=== PATIENT | male | born 1960 | race Caucasian/White ===

== ENCOUNTER 2020-01-03 00:27 | Inpatient (IN) | payer MEDICARE, MEDICAID, SELFPAY ==
[2020-01-03] VITALS (8 sets, daily range): BP systolic 134–174; BP diastolic 84–111; PULSE 106–120; RESP 17–21; TEMP 36.7–37.2; O2SAT 96–98; BMI 19.6
--- NOTE | 2020-01-03 00:34 | ED_ITS ---
HPI - Psych General: Chief Complaint: Psychiatric Symptoms Stated Complaint: HALLUCINATIONS Time Seen by Provider: 01/03/20 00:30 Source: patient Mode of arrival: [facility]) Limitations: altered mental status History of Present Illness: HPI Narrative: Patient is a 59-year-old male who presents to ED today via [facility] as well as [facility] for compl aints of bizarre behavior and hostile actions. [facility] office stated when they arrived to patient's home, patient came him with a knife stating that it was his day to and that he was ordered to kill him by the president. Apparently patient lives with his cousin who is the individual that contacted the police. Upon arrival patient's history is very hard to obtain from patient himself as he constantly rambles about people living underneath his house. 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 He states he is not suicidal. He admits to meth use. Associated symptoms: Reports delusions Review of Systems General: Reports: ROS unobtainable due to mental status [facility] ED PFSH: Family History (Updated 06/07/19 @ 14:42 by Ariana Crum RN) Other CAD (coronary artery disease) Social History (Updated 06/07/19 @ 14:42 by Ariana Crum RN) Smoking and tobacco status: current every day smoker Alcohol intake: never Physical Exam Const: COMMON NORMALS: alert GENERAL APPEARANCE: cooperative, disheveled and appears older than stated age ORIENTATION/CONSCIOUSNESS: Yes awake OTHER: pt rambles incessantly; he refuses to tell me his name stating I already told someone and I'm not allowed to tell anyone else HENMT: COMMON NORMALS: normocephalic and atraumatic HEAD & SCALP: normocephalic and atraumatic Resp: COMMON NORMALS: normal respiratory effort Cardio: COMMON NORMALS: regular rhythm RATE: tachycardic RHYTHM: regular rhythm Neuro: MARLENE COMA SCALE: document GCS findings Tracy coma scale eye opening: Spontaneous Tracy coma scale verbal response: Orientated Marlene coma scale motor response: Obey commands Tracy coma scale total score: 15 SENSORIUM/ORIENTATION: Yes alert Psych: APPEARANCE: Yes disheveled ATTITUDE: Yes calm ACTIVITY/MOTOR BEHAVIOR: Yes appropriate eye contact SPEECH: Yes excessive MOOD & AFFECT: Yes euthymic mood THOUGHT PROCESS: disorganized and Illogical thought process present THOUGHT CONTENT: Yes delusions ATTENTION/CONCENTRATION: Yes attention grossly impaired and Yes concentration grossly impaired INSIGHT: Limited insight present (Psych) JUDGEMENT: Limited judgement present (Psych) Skin: COMMON NORMALS: no rashes or lesions noted GENERAL SKIN EXAM: no rashes or lesions noted MDM - Psych MDM Narrative: Medical decision making narrative: Patient with no known psych history from our records. He doesn't have any psychiatric meds on his drug list. Will go ahead and obtain CT head. If cleared, he can go to NPU. Lab Data: Labs: Lab Results 01/03/20 01/03/20 Range/Units 01:00 01:00 WBC 7.1 (4.0-10.0) 10^3/ uL RBC 4.51 (4.1-5.3) 10^6/u L Hgb 14.0 (11.7-16.6) g/dL Hct 42.1 (42.0-52.0) % MCV 93.3 (80-94) fL MCH 31.0 (28.0-34.0) pg MCHC 33.3 (30.0-36.0) g/dL RDW 14.1 (12.1-15.1) % Plt Count 289 (130-400) 10^3/c mm MPV 9.9 (7.4-10.4) fL Neut % (Auto) 59.5 % Lymph % (Auto) 29.1 % Dickey % (Auto) 9.2 % Eos % (Auto) 0.3 % Baso % (Auto) 1.6 % Neut # (Auto) 4.22 (1.8-7.7) 10^3/u L Lymph # (Auto) 2.1 (0.8-4.8) 10^3/u L Dickey # (Auto) 0.7 (0.2-0.9) 10^3/u L Eos # (Auto) 0.0 (0.0-0.8) 10^3/u L Baso # (Auto) 0.1 (0.0-0.1) 10^3/u L Nucleated RBC % (a uto) 0 % Nucleated RBCs # 0.0 /100WBC Sodium 139 (136-145) mmol/L Potassium 3.6 (3.5-5.1) mmol/L Chloride 104 (98-107) mmol/L Carbon Dioxide 18 L (22-29) mmol/L Anion Gap 20.6 H (5-19) BUN 18 (8-23) mg/dL Creatinine 1.6 H (0.7-1.2) mg/dL GFR Calculation 44.2 L (90-130) mL/min Glucose 104 (65-115) mg/dL Calculated Osmolal ity 290 (285-295) mOsm/k g Calcium 9.9 (8.5-10.5) mg/dL Total Bilirubin 0.3 (0.15-1.2) mg/dL AST 25 (0-40) U/L ALT 16 (0-41) U/L Alkaline Phosphata se 99 (40-130) IU/L Total Protein 7.8 (6.6-8.7) g/dL Albumin 3.9 (3.5-5.2) g/dL Globulin 3.9 (1.3-4.6) g/dL Salicylates < 0.3 L (3-10) mg/dL Acetaminophen < 5.0 L (10-30) ug/mL Ethyl Alcohol < 10 (0-10) mg/dL Imaging Data^: CT Head: Radiologist's impression: [address] [address] [address] Scan Report Signed Patient: Real Casey Unit #: [id number] : 1960 Age/Sex: 59 / M ADM Date: 01/03/20 Loc: INJECTION MOLD TOOLING TECHNICIAN Room/Bed: [address]: Hari Hart MD Ordering Provider/Ordering MD: Katie Heart MD Date of Service: 01/03/20 Procedure(s): CT head wo con* [id number] Accession Number(s): [id number] Report Number: [id number] PROCEDURE INFORMATION: Exam: CT Head Without Contrast Exam date and time: 01/03/2020 1:51 AM Age: 59 years old Clinical indication: Altered mental status/memory loss; Confusion or disorientation; Additional info: Psychosis TECHNIQUE: Imaging protocol: Computed tomography of the head without contrast. Radiation optimization: All CT scans at this facility use at least one of these dose optimization techniques: automated exposure control; mA and/or kV adjustment per patient size (includes targeted exams where dose is matched to clinical indication); or iterative reconstruction. COMPARISON: No relevant prior studies available. RADIATION DOSE METRICS: Total DLP (mGy-cm): 638.14 FINDINGS: Brain: No acute intracranial hemorrhage or mass effect. No definite acute infarct by CT. MRI could be more sensitive/specific for detection, as clinically directed. Ventricles: Ventricle size is normal for age. Bones/joints: No definite acute skull fracture. Paranasal sinuses: Included paranasal sinuses are essentially clear. Mastoid air cells: No significant acute finding. Vasculature: Vascular calcifications in the internal carotid and vertebral basilar systems. CT/CT head wo con* [id number] IMPRESSION: 1. No acute intracranial hemorrhage or mass effect. 2. No definite acute infarct by CT, see above. 3. Other findings discussed above. Radiation Dose CTDIVOL = (mGy): DLP = 638.14 (mGy-cm) Dictated By: Allan Prieto MD Signed By: Allan Prieto MD Signed Date/Time: 01/03/20217 DD/ 6 Discharge Plan Discharge Patient Disposition: Admitted As Inpatient Admit Provider: Hari Hart Clinical Impression: Acute psychosis Condition: Stable Coding Level of Care Code ED Cyber Ops Planner for Chg Fwd Exam Detailed
[2020-01-03 01:23] LABS: Basophils # 0.1 10^3/uL (0.0-0.1); Basophils % 1.6 %; Eosinophils % 0.3 %; Hematocrit 42.1 % (42.0-52.0); Lymphocytes # 2.1 10^3/uL (0.8-4.8); Lymphocytes % 29.1 %; Mean Corpuscular HGB Conc 33.3 g/dL (30.0-36.0); Mean Corpuscular Volume 93.3 fL (80-94); Mean Platelet Volume 9.9 fL (7.4-10.4); Monocytes # 0.7 10^3/uL (0.2-0.9); Monocytes % 9.2 %; Neutrophils # 4.22 10^3/uL (1.8-7.7); Neutrophils % 59.5 %; Nucleated Red Blood Cells % 0 %; Platelet Count 289 10^3/cmm (130-400); Red Blood Count 4.51 10^6/uL (4.1-5.3); Red Cell Distribution Width 14.1 % (12.1-15.1); White Blood Count 7.1 10^3/uL (4.0-10.0)
[2020-01-03 01:36] LABS: Alanine Aminotransferase 16 U/L (0-41); Albumin Level 3.9 g/dL (3.5-5.2); Alkaline Phosphatase 99 IU/L (40-130); Anion Gap 20.6 (5-19); Aspartate Amino Transferase 25 U/L (0-40); Blood Urea Nitrogen 18 mg/dL (8-23); Calcium 9.9 mg/dL (8.5-10.5); Carbon Dioxide 18 mmol/L (22-29); Chloride 104 mmol/L (98-107); Globulin 3.9 g/dL (1.3-4.6); Glomerular Filtration Rate 44.2 mL/min (90-130); Glucose 104 mg/dL (65-115); Osmolality Calculated 290 mOsm/kg (285-295); Potassium 3.6 mmol/L (3.5-5.1); Sodium 139 mmol/L (136-145); Total Bilirubin 0.3 mg/dL (0.15-1.2); Total Protein 7.8 g/dL (6.6-8.7)
[2020-01-03 01:40] LABS: Acetaminophen < 5.0 ug/mL (10-30); Alcohol Level < 10 mg/dL (0-10); Salicylate < 0.3 mg/dL (3-10)
--- NOTE | 2020-01-03 01:47 | CTR_ITS ---
PROCEDURE INFORMATION: Exam: CT Head Without Contrast Exam date and time: 01/03/2020 1:51 AM Age: 59 years old Clinical indication: Altered mental status/memory loss; Confusion or disorientation; Additional info: Psychosis TECHNIQUE: Imaging protocol: Computed tomography of the head without contrast. Radiation optimization: All CT scans at this facility use at least one of these dose optimization techniques: automated exposure control; mA and/or kV adjustment per patient size (includes targeted exams where dose is matched to clinical indication); or iterative reconstruction. COMPARISON: No relevant prior studies available. RADIATION DOSE METRICS: Total DLP (mGy-cm): 638.14 FINDINGS: Brain: No acute intracranial hemorrhage or mass effect. No definite acute infarct by CT. MRI could be more sensitive/specific for detection, as clinically directed. Ventricles: Ventricle size is normal for age. Bones/joints: No definite acute skull fracture. Paranasal sinuses: Included paranasal sinuses are essentially clear. Mastoid air cells: No significant acute finding. Vasculature: Vascular calcifications in the internal carotid and vertebral basilar systems. CT/CT head wo con* [id number] IMPRESSION: 1. No acute intracranial hemorrhage or mass effect. 2. No definite acute infarct by CT, see above. 3. Other findings discussed above. Radiation Dose CTDIVOL = (mGy): DLP = 638.14 (mGy-cm)
--- NOTE | 2020-01-03 02:58 | PC.NURSE ---
i agree with this assessment
--- NOTE | 2020-01-03 04:51 | PC.NURSE ---
The patient has multiple areas of discoloration to both arms which appear to be old bruises. There is one healing skin tear on left arm that is about 1/2 size of a dime.
[2020-01-03] MEDS: loperamide 2 mg Capsule PO (08:57)
--- NOTE | 2020-01-03 12:24 | PM.NHP ---
Providers/Chief Complaint Admitting Physician: Hari Hart MD Chief Complaint: HALLUCINATIONS HPI NPU History of Present Illness Real Casey is a 59 year old male who presented to the emergency room with yielding the following report: Patient is a 59-year-old male who presents to ED today via [facility] as well as [facility] for complaints of bizarre behavior and hostile actions. [facility] office stated when they arrived to patient's home, patient came him with a knife stating that it was his day to and that he was ordered to kill him by the president. Apparently patient lives with his cousin who is the individual that contacted the police. Upon arrival patient's history is very hard to obtain from patient himself as he constantly rambles about people living underneath his house. 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 He states he is not suicidal. He admits to meth use. Associated symptoms: Reports delusions Real was admitted to the neuropsychiatric unit for definitive treatment of those issues. He is a very poor story and was not able to add a lot of information due to both his poor communication skills his anxiety and some apparent thought disorder. There are different times in the interview where he got emotional and ultimately demanded that I leave the room prior to the completion of the interview. It was then, with asking historical questions about his family namely whether his parents were alive. He said no and began crying. The more upset he got the more angry got it me. And ultimately kicked me out of his room. He reports no previous psychiatric hospitalization. He was also very upset because he felt like his family had deserted him and that is why he is here. He did agree however that we could contact his family. Meds NPU Home Medications Medication Instructions Recorded Confirmed Last Taken Type albuterol sulfate 90 mcg/actuation 2 puff INHALATION Q6H PRN 06/07/19 01/03/20 Unknown History aerosol inhaler amlodipine 10 mg tablet 10 mg PO DAILY 06/07/19 01/03/20 Unknown History aspirin 81 mg tablet,delayed 81 mg PO DAILY 06/07/19 01/03/20 Unknown History release atorvastatin 40 mg tablet 40 mg PO DAILY 06/07/19 01/03/20 Unknown History clopidogrel 75 mg tablet 75 mg PO DAILY 06/07/19 01/03/20 Unknown History fluticasone furoate 200 1 inh INHALATION DAILY 06/07/19 01/03/20 Unknown History mcg-vilanterol 25 mcg/dose inhalation powder fluticasone propionate 50 2 spray INTRANASAL DAILY 06/07/19 01/03/20 Unknown History mcg/actuation nasal spray,suspension lisinopril 20 mg tablet 20 mg PO BID 06/07/19 01/03/20 Unknown History magnesium oxide 400 mg PO BID 06/07/19 01/03/20 Unknown History metoclopramide HCl 10 mg tablet 10 mg PO Q6H 06/07/19 01/03/20 Unknown History mirtazapine 30 mg tablet 30 mg PO DAILY 06/07/19 01/03/20 Unknown History nitroglycerin 0.4 mg sublingual 0.4 mg SUBLINGUAL Q5M PRN 06/07/19 01/03/20 Unknown History tablet nortriptyline 10 mg capsule 10 mg PO DAILY 06/07/19 01/03/20 Unknown History omeprazole 20 mg capsule,delayed 20 mg PO BID 06/07/19 01/03/20 Unknown History release ranitidine HCl 150 mg capsule 150 mg PO BID 06/07/19 01/03/20 Unknown History tamsulosin 0.4 mg capsule 0.4 mg PO DAILY 06/07/19 01/03/20 Unknown History tiotropium bromide 2.5 2 puff INHALATION DAILY 06/07/19 01/03/20 Unknown History mcg/actuation mist for inhalation cilostazol 100 mg tablet 100 mg PO BID #60 tab 07/15/19 01/03/20 Unknown Rx metoprolol succinate 100 mg 100 mg PO DAILY #90 tab 07/15/19 01/03/20 Unknown Rx tablet,extended release 24 hr Allergies Allergy/AdvReac Type Severity Reaction Status Date / Time tramadol Allergy Unknown sick Verified 06/07/19 14:39 stomach PFSH NPU PFSH: Family History (Updated 06/07/19 @ 14:42 by Ariana Crum RN) Other CAD (coronary artery disease) Social History (Updated 06/07/19 @ 14:42 by Ariana Crum RN) Smoking and tobacco status: current every day smoker Alcohol intake: never Mental Status Exam MSE Comments: This is an underweight white male with bruises on his exposed skin, limited dress grooming and eye contact. With no dentition., Uncooperative with exam and moderate to severe distress. Speech was limited and I had and slightly decreased volume. Mood described as depressed affect congruent. Thought process linear at times disorganized at others. Thought content: Patient denied suicidal or homicidal ideation, there were no delusions reported or noted, he denied any auditory or visual hallucinations. Titration were impaired and memory was unreliable with none were formally tested. He is alert and oriented times person and place. Insight and judgment are impaired, impulse control impaired. Vitals/I&O/Wt Last Vital Signs Temp 98.7 F 01/03/20 06:00 Pulse 115 H 01/03/20 06:00 Resp 21 H 01/03/20 06:00 BP 134/91 01/03/20 06:00 Pulse Ox 98 01/03/20 06:00 Weight last 48 hrs Weight 54.431 kg Weight 54.431 kg Data NPU : 01/03/20 01:00 01/03/20 01:00 A&P Assessment and plan (1) Acute psychosis: Status: Acute Additional A&P Information This is a 58-year-old male who is a very poor historian who was reportedly found with thought disorder with a negative drug screen who was placed on a 96-hour hold by his family but is resistant to medication and is most unable to articulate his general needs. 1. Continue current medication. We will attempt to get collateral information about what he is taken or how long he has been out of medication if that is the case. 2. Continue every 15 minute checks for safety. 3. Encourage individual, group and milieu therapy. 4. Ensure that there was a UDS to identify any needs in the addiction arena Involuntary Hold Information 96 Hour Hold: 96 Hour Involuntary Admission: No Attestations NPU Medical Necessity Statement*: Inpatient hospitalization is medically necessary and the clinically appropriate intervention at this time. We will get collateral information on his medication and add medications and make changes as indicated. He will be in the hospital for over 2 midnights. We will monitor for safety for discharge. Likely length of stay 4 to 6 days. Coding Level of Care Code Acute Warehouse Team Leader for Dana Donnelly Diagnoses Acute psychosis F23
[2020-01-03] MEDS: hyDROXYzine 25 mg Capsule 50 MG PO (21:10)
[2020-01-03] MEDS: trazodone 50 mg Tablet PO (21:10)
[2020-01-04 06:00] VITALS: BP 181/103; PULSE 100; RESP 18; TEMP 36.6; O2SAT 101
[2020-01-04 13:08] VITALS: BP 164/99; PULSE 110; RESP 18; TEMP 36.6; O2SAT 98
--- NOTE | 2020-01-04 15:14 | PM.NPN ---
Subjective NPU Subjective: Interval history: Real presents today continuing to be disorganized and seeming unable to fully communicate his needs. He was able to identify his pharmacy which allowed us to get his most recently taken medication. However there were no significant psychiatric medications on the list. And we are working hard to get a hold of family to see if we get some collateral information to identify what may have helped in the past. 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 Reports he is eating okay and sleeping all right. Mental Status Exam MSE Comments: This is an underweight white male with bruises on his exposed skin, limited dress grooming and eye contact. With no dentition., More cooperative with exam in mild distress. Speech was limited and normal rate and slightly decreased volume. Mood described as depressed affect congruent. Thought process linear at times disorganized at others. Thought content: Patient denied suicidal or homicidal ideation, there were no delusions reported or noted, he denied any auditory or visual hallucinations. Attention and concentration were impaired and memory was unreliable with none were formally tested. He is alert and oriented times person and place. Insight and judgment are impaired, impulse control impaired. Vitals/I&O/Wt Last Vital Signs Temp 97.9 F 01/04/20 13:08 Pulse 110 H 01/04/20 13:08 Resp 18 01/04/20 13:08 BP 164/99 01/04/20 13:08 Pulse Ox 98 01/04/20 13:08 Weight last 48 hrs Weight 54.431 kg Weight 54.431 kg Data NPU : 01/03/20 01:00 01/03/20 01:00 A&P Additional A&P Information (1) Acute psychosis: This is a 58-year-old male who is a very poor historian who was reportedly found with thought disorder with a negative drug screen who was placed on a 96-hour hold by his family but is resistant to medication and is most unable to articulate his general needs. 1. Continue current medication. We will attempt to get collateral information about what he is taken or how long he has been out of medication if that is the case. 2. Continue every 15 minute checks for safety. 3. Encourage individual, group and milieu therapy. 4. Ensure that there was a UDS to identify any needs in the addiction arena Involuntary Hold Information 96 Hour Hold: 96 Hour Involuntary Admission: No Attestations NPU Medical Necessity Statement*: Inpatient hospitalization is medically necessary and the clinically appropriate intervention at this time. We will get collateral information on his medication and add medications and make changes as indicated. We will monitor for safety for discharge. Likely length of stay 4 to 6 days. Coding Level of Care Code Acute Pull Out Operator for Dana Donnelly
--- NOTE | 2020-01-04 18:16 | PC.RESP ---
Smoking Cessation information sent to patient.
[2020-01-04] MEDS: tamsulosin 0.4 mg Capsule PO (20:30)
[2020-01-04] MEDS: amlodipine 10 mg Tablet PO (20:30)
[2020-01-04] MEDS: trazodone 50 mg Tablet PO (20:30)
[2020-01-04] MEDS: nortriptyline 10 mg Capsule PO (20:30)
[2020-01-04] MEDS: haloperidol 5 mg Tablet PO (20:31)
[2020-01-04 21:34] VITALS: PULSE 95; RESP 18; O2SAT 98
--- NOTE | 2020-01-04 21:41 | NUR.SHIFT ---
ON ASSESSMENT, LUNG SOUNDS ARE DIMINISHED SLIGHTLY IN BILATERAL BASES, HE HAS AN INTERMITTANT NON-PRODUCTIVE COUGH. THUY HAS BEEN SOMEWHAT CONFUSED, VERY IMPULSIVE, HE SEEMS PARANOID, TRIES TO RUN TO THE DOOR TO GET OUT. hE SEEMS TO BE HAVING BOTH VISUAL/AUDITORY HALLUCINATIONS. HE RANGES FROM HIDING BEHIND A BLANKET IN THE CORNER TO TRYING TO ESCAPE-RUNNING DOWN THE HALLWAY QUICKLY HE PHYSICALLY CAN. I RETRIEVED HIM DOWN THE DAVIS IN THE RESTRAINT AREA AFTER HE RAN FROM THE DAYROOM. HE HAD BOTH HANDS TURNED PALMS UP AND ARMS EXTENDED. HIS IS VERY SUSPICIOUS OF HIS SURROUNDINGS AND IS DIFFICULT TO REDIRECT. THERE IS A PROBLEM WITH FORGETFULNESS. IT IS DIFFICULT FOR THIS PATIENT TO COMMUNICATE BECAUSE HE CAN NOT FINISH A SENTENCE BEFORE HIS CONVERSATIONAL TOPIC CHANGES TO SOMETHING DIFFERENT. HE IS A FLIGHT RISK AND IF DISCHARGED WITHOUT SOMEONE TO WATCH OVER HIM. AT THIS TIME, HE IS NOT ABLE TO CARE FOR HIMSELF. PATIENT REFUSES TO EAT OR DRINK ANYTHING. HE IS BOTH URINE/FECAL INCONTINENT.
[2020-01-04 21:56] VITALS: BP 181/75; PULSE 91; RESP 19; TEMP 36.4; O2SAT 98
[2020-01-05 06:00] VITALS: BP 119/82; PULSE 129; RESP 18; TEMP 36.8; O2SAT 97
[2020-01-05] MEDS: tamsulosin 0.4 mg Capsule PO (08:15)
[2020-01-05] MEDS: amlodipine 10 mg Tablet PO (08:15)
[2020-01-05] MEDS: clopidogrel 75 mg Tablet PO (08:15)
[2020-01-05] MEDS: albuterol 8 gm MDI 2 PUFF INHALATION ×2 (10:56→19:08)
[2020-01-05 10:57] VITALS: PULSE 126; RESP 17; O2SAT 98
--- NOTE | 2020-01-05 12:19 | PM.NPN ---
Subjective NPU Subjective: Interval history: Real presented today certainly more cogent and able to communicate. He was able to articulate that he had been on Remeron, in the past, and that had been very helpful, both with his mood and his appetite, all things considered. He continued to deny history of taking any antipsychotics, however, he did have a dose of Haldol which seemed to help him. We discussed the risks, benefits, and alternatives of maybe starting Haldol as well, but he was resistant to that, and he agreed to proceed as is documented in this note. We discussed continuing to assist him in getting in contact with his family and figuring out where he needs to go next. He reports that he is eating a little better and sleeping fine. Mental Status Exam MSE Comments: This is an underweight, white male, with adequate dress and grooming, and improving eye contact. No abnormal movements. Cooperative with exam in no acute distress. Speech was more spontaneous and normal rate and volume. Mood described as ?still depressed but getting better?; affect congruent. Thought process, organized. Thought content: patient denied any suicidal or homicidal ideation, there were no delusions reported or noted, patient denied any auditory or visual hallucinations. Attention, concentration, and memory appeared intact but none were formally tested. Alert and oriented times three. Insight and judgment are limited. Impulse control is improving. Vitals/I&O/Wt Last Vital Signs Temp 98.9 F 01/05/20 13:10 Pulse 118 H 01/05/20 13:10 Resp 18 01/05/20 13:10 BP 168/82 01/05/20 13:10 Pulse Ox 98 01/05/20 13:10 Data NPU : 01/03/20 01:00 01/03/20 01:00 A&P Additional A&P Information (1) Acute psychosis: This is a 58-year-old male who is a very poor historian who was reportedly found with thought disorder with a negative drug screen who was placed on a 96-hour hold by his family but is resistant to medication and is most unable to articulate his general needs. 1. Continue current medication. Start Remeron 15 mg p.o. nightly. 2. Continue every 15 minute checks for safety. 3. Encourage individual, group and milieu therapy. 4. Ensure that there was a UDS to identify any needs in the addiction arena Involuntary Hold Information 96 Hour Hold: 96 Hour Involuntary Admission: No Attestations NPU Medical Necessity Statement*: Inpatient hospitalization is medically necessary and the clinically appropriate intervention at this time. We will get collateral information on his medication and add medications and make changes as indicated. We will monitor for safety for discharge. Likely length of stay 2-4 days. Coding Level of Care Code Acute Bandage Winding Machine Operator for Dana Donnelly
[2020-01-05 13:10] VITALS: BP 168/82; PULSE 118; RESP 18; TEMP 37.2; O2SAT 98
[2020-01-05 19:08] VITALS: PULSE 105; RESP 17; O2SAT 98
[2020-01-05 19:10] VITALS: PULSE 111; RESP 17; O2SAT 98
[2020-01-05] MEDS: hyDROXYzine 25 mg Capsule 50 MG PO (19:34)
[2020-01-05] MEDS: nortriptyline 10 mg Capsule PO (19:35)
[2020-01-05] MEDS: trazodone 50 mg Tablet PO (19:35)
[2020-01-05] MEDS: mirtazapine 15 mg Tablet PO (19:35)
[2020-01-05] MEDS: haloperidol 5 mg Tablet PO (19:35)
[2020-01-05 21:02] VITALS: BP 159/94; PULSE 117; RESP 20; TEMP 37.1; O2SAT 99
--- NOTE | 2020-01-05 23:01 | PC.NURSE ---
ON ASSESSMENT, LUNG SOUNDS ARE DIMINISHED SLIGHTLY IN BILATERAL BASES, HE HAS AN INTERMITTANT NON-PRODUCTIVE COUGH. THUY HAS BEEN MILDLY CONFUSED. WHEN WE TALKED HIS WHOLE AFFECT HAS CHANGED FROM LAST NIGHT. HE IS ABLE TO COMMUNICATE VERBALLY WITH INTACT THOUGHTS APPOSED TO LAST NIGHT WHEN HE WAS UNABLE TO FINISH A THOUGHT AND HIS WORDS WERE NOT APPROPRIATE AND THINKING PROCESS BROKEN. PATIENT IS STILL REFUSING SNACKS OR ENSURE. THIS EVENING HE WENT TO BED EARLY BUT HAS BEEN UP TO GO TO THE BATHROOM A COUPLE OF TIMES. OVERALL, HE IS MUCH IMPROVED.
[2020-01-06] VITALS (7 sets, daily range): BP systolic 143–191; BP diastolic 66–80; PULSE 61–120; RESP 17–20; TEMP 36.2–37.4; O2SAT 96–100
[2020-01-06] MEDS: albuterol 8 gm MDI 2 PUFF INHALATION ×2 (07:21→22:30)
[2020-01-06] MEDS: tamsulosin 0.4 mg Capsule PO (09:45)
[2020-01-06] MEDS: clopidogrel 75 mg Tablet PO (09:45)
[2020-01-06] MEDS: amlodipine 10 mg Tablet PO (09:45)
--- NOTE | 2020-01-06 11:56 | PM.NPN ---
Subjective NPU Subjective: Interval history: And he presented today reporting that he is feeling a little better. He continues to show increased clarity of thought and able to recall his medications today which was not the case when he was admitted. Raising the question of what exactly was going on at the time of his admission. Likely has anxiety. He reports he is tolerating the Remeron quite well. At this point there is concerns that his sister is saying he cannot come back there and we are working with him along with the treatment team to figure out where he can go. He clearly benefits on higher level of assistance in managing his medication and treatment once he is discharged. Reports he is eating better and sleeping fine. Mental Status Exam MSE Comments: This is an underweight, white male, with adequate dress and grooming, and improving eye contact. No abnormal movements. Cooperative with exam in no acute distress. Speech was more spontaneous and normal rate and volume. Mood described as feeling a little better; affect congruent. Thought process, organized. Thought content: patient denied any suicidal or homicidal ideation, there were no delusions reported or noted, patient denied any auditory or visual hallucinations. Attention, concentration, and memory appeared intact but none were formally tested. Alert and oriented times three. Insight and judgment are limited, but improving. Impulse control is improving. 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 1. Continue current medication. 2. Continue every 15 minute checks for safety. 3. Encourage individual, group and milieu therapy. 4. UDS revealed a positive screen for cannabis and methamphetamine and we will encourage sober living follow-up the high level of care to which she is willing to commit. Involuntary Hold Information 96 Hour Hold: 96 Hour Involuntary Admission: No Attestations NPU Medical Necessity Statement*: Inpatient hospitalization is medically necessary and the clinically appropriate intervention at this time. We will monitor medications and make changes as indicated. We will monitor for safety for discharge. Likely length of stay 1-3 days. Coding Level of Care Code Acute Fixed Assets Accountant for Dana Donnelly
[2020-01-06 14:55] LABS: Amphetamines Screen Urine Positive (Negative); Barbiturates Screen Urine Negative (Negative); Benzodiazepines Screen Urine Negative (Negative); Cocaine Screen Urine Negative (Negative); Opiate Screen Urine Negative (Negative); PCP Screen Urine Negative (Negative); THC Screen Urine Positive (Negative)
[2020-01-06] MEDS: ondansetron 4 MG Tablet PO (21:21)
[2020-01-06] MEDS: mirtazapine 15 mg Tablet PO (21:21)
[2020-01-06] MEDS: hyDROXYzine 25 mg Capsule 50 MG PO (21:21)
[2020-01-06] MEDS: OLANZapine 5 mg ODT PO (21:21)
[2020-01-06] MEDS: nortriptyline 10 mg Capsule PO (21:22)
--- NOTE | 2020-01-07 03:54 | PC.NURSE ---
Patient is sitting in his room where he has been since 1900. He is clear of thought this evening and spoke to me abou needing NEXIUM for his stomach ulcers. He told me that he has a condition called gastroparesis and that his reflux is terrible. His UA came back positive for meth and marijuana. He said he wants to go home. He also would like to have some breathing treatments to help clear his lungs which are mildly diminished today.
[2020-01-07 06:00] VITALS: BP 126/81; PULSE 104; RESP 18; TEMP 37; O2SAT 97
[2020-01-07] MEDS: clopidogrel 75 mg Tablet PO (09:58)
[2020-01-07] MEDS: amlodipine 10 mg Tablet PO (09:58)
[2020-01-07] MEDS: tamsulosin 0.4 mg Capsule PO (09:58)
--- NOTE | 2020-01-07 10:35 | PM.NDC ---
Diagnoses at Discharge Discharge Diagnosis (1) Acute psychosis: Status: Acute Reason for Visit Reason for Visit: HALLUCINATIONS Brief History: Real Casey is a 59 year old male who presented to the emergency room with yielding the following report: Patient is a 59-year-old male who presents to ED today via [facility] as well as [facility] for complaints of bizarre behavior and hostile actions. [facility] office stated when they arrived to patient's home, patient came him with a knife stating that it was his day to and that he was ordered to kill him by the president. Apparently patient lives with his cousin who is the individual that contacted the police. Upon arrival patient's history is very hard to obtain from patient himself as he constantly rambles about people living underneath his house. 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 He states he is not suicidal. He admits to meth use. Associated symptoms: Reports delusions Real was admitted to the neuropsychiatric unit for definitive treatment of those issues. He is a very poor story and was not able to add a lot of information due to both his poor communication skills his anxiety and some apparent thought disorder. There are different times in the interview where he got emotional and ultimately demanded that I leave the room prior to the completion of the interview. It was then, with asking historical questions about his family namely whether his parents were alive. He said no and began crying. The more upset he got the more angry got it me. And ultimately kicked me out of his room. He reports no previous psychiatric hospitalization. He was also very upset because he felt like his family had deserted him and that is why he is here. He did agree however that we could contact his family. Hospital Course Hospital Course The patient presented to the emergency room, from an outside hospital, for medical clearance. He was acting very strangely and making statements to the [employer] Programmer when they arrived at his house. There was no bed available at that hospital so he was transferred to [facility] for definitive treatment of those issues. He was evaluated and medically cleared in the emergency room, and then he was admitted to the neuropsychiatric unit for definitive treatment for his concerns. On the unit, he slowly acclimated to the individual, group, and milieu therapies provided. Upon arrival he was quite unkempt and isolative. We were able to identify the medications which he had likely not been taking, including some cardiac and other physical medical issue medications. After his medications were restarted he began to show improvement, and at the time of discharge had fairly significant improvement. We were able to work with his family, for him to have a place to stay, given his level of improvement; they had had significant concerns with him not taking his medication. During the hospitalization, the patient had routine laboratory studies which were within normal limits, except for a few outliers. Additionally, the patient had a general medical evaluation which was within normal limits and revealed no new acute processes. Discharge Summary At the time of discharge the patient denied all lethality, was absent psychosis, and mood and anxiety were well managed. The patient endorsed a plan to avoid all drugs of abuse and to follow-up with outpatient services, as recommended. The patient was evaluated and deemed to be absent credible lethality, and had achieved the maximum benefit from an inpatient hospitalization, and so he was discharged. Involuntary Hold Information 96 Hour Hold: 96 Hour Involuntary Admission: No Mental Status Exam MSE Comments: This is an underweight, white male, with adequate dress and grooming, and improving eye contact. No abnormal movements. Cooperative with exam in no acute distress. Speech was more spontaneous and normal rate and volume. Mood described as pretty good; affect congruent. Thought process, organized. Thought content: patient denied any suicidal or homicidal ideation, there were no delusions reported or noted, patient denied any auditory or visual hallucinations. Attention, concentration, and memory appeared intact but none were formally tested. Alert and oriented times three. Insight and judgment are improving. Impulse control is improving. Discharge Data Data Completed and Pending: Completed Studies During Hospitalization Category Date Time Status CT head wo con* 7 0450 Urgent Cat Scan 01/03/20 01:47 Completed Labs from last 24 hours 01/06/20 14:05 Urine Opiates Scre en Negative Ur Barbiturates Sc reen Negative Ur Phencyclidine S crn Negative Ur Amphetamines Sc reen Positive H U Benzodiazepines Scrn Negative Urine Cocaine Scre en Negative U Marijuana (THC) Screen Positive H Vitals: Last Vital Signs Temp 98.6 F 01/07/20 06:00 Pulse 104 H 01/07/20 06:00 Resp 18 01/07/20 06:00 BP 126/81 01/07/20 06:00 Pulse Ox 97 01/07/20 06:00 Discharge Plan Discharge Patient Disposition: Home Condition: Stable Prescriptions: Continued amlodipine 10 mg tablet 10 mg PO DAILY RF: 0 magnesium oxide 400 mg magnesium tablet 400 mg PO BID RF: 0 omeprazole 20 mg capsule,delayed release(DR/EC) 20 mg PO BID RF: 0 Spiriva Respimat 2.5 mcg/actuation mist 2 puff INHALATION DAILY RF: 0 Breo Ellipta 200-25 mcg/dose blister with device 1 inh INHALATION DAILY RF: 0 lisinopril 20 mg tablet 20 mg PO BID RF: 0 albuterol sulfate [ProAir HFA] 90 mcg/actuation HFA aerosol inhaler 2 puff INHALATION Q6H PRN (Reason: Adequate Ventilation) RF: 0 clopidogrel 75 mg tablet 75 mg PO DAILY RF: 0 atorvastatin 40 mg tablet 40 mg PO DAILY RF: 0 fluticasone propionate [Flonase Allergy Relief] 50 mcg/actuation spray,suspension 2 spray INTRANASAL DAILY RF: 0 tamsulosin [Flomax] 0.4 mg capsule 0.4 mg PO DAILY RF: 0 metoclopramide HCl [Reglan] 10 mg tablet 10 mg PO Q6H RF: 0 aspirin [Adult Aspirin Regimen] 81 mg tablet,delayed release (DR/EC) 81 mg PO DAILY RF: 0 nitroglycerin [Nitrostat] 0.4 mg tablet, sublingual 0.4 mg SUBLINGUAL Q5M PRN (Reason: Chest Pain) RF: 0 metoprolol succinate 100 mg tablet extended release 24 hr 100 mg PO DAILY Qty: 90 RF: 3 cilostazol 100 mg tablet 100 mg PO BID Qty: 60 RF: 6 nortriptyline 10 mg capsule 10 mg PO DAILY 30 Days Qty: 30 RF: 1 mirtazapine 30 mg tablet 30 mg PO DAILY 30 Days Qty: 30 RF: 1 Discontinued ranitidine HCl 150 mg capsule 150 mg PO BID RF: 0 Discharge Orders: Discharge Order (Routine); Ordered 01/07/20 Ordered By: Hari Hart Referrals: [facility] [Outside] - 4-7 days (Due to COVID procedures have changed. Will need to call for information but likely go for your intake assessment. Once this is done you will be linked with appropriate services. ) Nader Beltrán [Referring] - 01/13/20 1:40 pm (Appointment is at the [facility] [place]. For hospital follow up. [address], [place] ) Discharge Diet: Regular Discharge Activity: Resume usual activity Patient Instructions: Anxiety (DC) Discharge Date/Time: 01/07/20 13:41 Discharge Attestations NPU Time Spent in Discharge Care*: less than 30 min Specific Discharge Activities: Specific discharge activities: educating patient, discussing with continuous pillowcase cutter/social workers/dc planners, documenting/other paperwork and evaluating patient/reviewing data Coding Level of Care Code Acute Block Cuber for Dana Fwd Diagnoses Acute psychosis F23
[2020-01-07 10:50] VITALS: PULSE 85; RESP 17; O2SAT 99
[2020-01-07] MEDS: albuterol 8 gm MDI 2 PUFF INHALATION (10:50)
[2020-01-07 11:27] VITALS: PULSE 85; RESP 17; O2SAT 99
== END 2020-01-07 13:41 | disposition home or self-care (01) | DRG 885 ==
LOC: ER 01:52 → NP 02:00
PROVIDERS: Emergency Medicine; Admitting Provider Psychiatry & Neurology Psychiatry; Visit Provider Psychiatry & Neurology Psychiatry
DX: F23 Brief psychotic disorder (principal); F17.210 Nicotine dependence, cigarettes, uncomplicated; Z79.82 Long term (current) use of aspirin; F15.90 Other stimulant use, unspecified, uncomplicated
CPT/HCPCS: 12345; 70450; 80053; 80306; 80307; 85025; 94640; 99284; J3535; Q0162

== ENCOUNTER 2020-05-13 18:09 | Inpatient (IN) | payer MEDICARE, MEDICAID, SELFPAY ==
[2020-05-13 18:15] VITALS: BP 178/103; PULSE 98; RESP 16; TEMP 36.5; O2SAT 100; BMI 13.1
--- NOTE | 2020-05-13 18:15 | ECG_ITS ---
[facility] Test Date: 2020-05-13 Pat Name: Real Casey Department: Room: Gender: Male Retail Zone Specialist: : 1960 Requested By: Ayush Hurtado Order Number: [id number] Ulises MD: Annalisa Adams M.D. Measurements Intervals [place] Rate: 63 P: 71 IL: 116 QRS: 73 QRSD: 79 T: 71 QT: 417 QTc: 428 Interpretive Statements SINUS RHYTHM WITH SHORT [place] INTERVAL No previous ECG available for comparison Electronically Signed On 05-13-2020 22:06:45 REINFORCING METAL WORKER by Annalisa Adams M.D. [id number]
--- NOTE | 2020-05-13 19:06 | PC.PHAR ---
pt unable to confirm medication with me. he brought everything in a bag and I confirmed them with the list in his medication history. the only one that was not in the bag was nortriptyline. it may have been left out accidently, i am not sure.
[2020-05-13 19:17] LABS: Basophils # 0.1 10^3/uL (0.0-0.1); Basophils % 1.2 %; Eosinophils % 0.1 %; Hematocrit 43.1 % (42.0-52.0); Hemoglobin 14.3 g/dL (11.7-16.6); Lymphocytes # 2.2 10^3/uL (0.8-4.8); Lymphocytes % 28.6 %; Mean Corpuscular HGB Conc 33.2 g/dL (30.0-36.0); Mean Corpuscular Hemoglobin 30.3 pg (28.0-34.0); Mean Corpuscular Volume 91.3 fL (80-94); Mean Platelet Volume 9.6 fL (7.4-10.4); Monocytes # 0.5 10^3/uL (0.2-0.9); Monocytes % 6.8 %; Neutrophils # 4.92 10^3/uL (1.8-7.7); Neutrophils % 62.9 %; Nucleated Red Blood Cells % 0 %; Platelet Count 198 10^3/cmm (130-400); Red Blood Count 4.72 10^6/uL (4.1-5.3); Red Cell Distribution Width 14.6 % (12.1-15.1); White Blood Count 7.8 10^3/uL (4.0-10.0)
[2020-05-13 19:39] LABS: Alanine Aminotransferase 20 U/L (0-41); Alkaline Phosphatase 119 IU/L (40-130); Anion Gap 18.4 (5-19); Aspartate Amino Transferase 29 U/L (0-40); Blood Urea Nitrogen 21 mg/dL (8-23); Calcium 9.7 mg/dL (8.5-10.5); Carbon Dioxide 22 mmol/L (22-29); Chloride 108 mmol/L (98-107); Globulin 3.6 g/dL (1.3-4.6); Glomerular Filtration Rate 68.1 mL/min (90-130); Glucose 86 mg/dL (65-115); Osmolality Calculated 302 mOsm/kg (285-295); Potassium 3.4 mmol/L (3.5-5.1); Sodium 145 mmol/L (136-145); Thyroid Stimulating Hormone 1.81 uIU/mL (0.27-4.20); Total Bilirubin 0.5 mg/dL (0.15-1.2); Total Protein 7.6 g/dL (6.6-8.7)
[2020-05-13 19:40] LABS: Acetaminophen < 5.0 ug/mL (10-30); Alcohol Level < 10 mg/dL (0-10); Salicylate < 0.3 mg/dL (3-10)
--- NOTE | 2020-05-13 21:12 | W.ED.PSYCH ---
HPI - Psych General: Chief Complaint: Psychiatric Symptoms Stated Complaint: 96 HOUR HOLD Time Seen by Provider: 05/13/20 18:13 History of Present Illness: HPI Narrative: The patient is a 59-year-old male with chronic schizophrenia who comes to the ER with a 96-hour hold paperwork after he was found acting bizarrely by at home health care worker. He had piles of trash everywhere and was not making sense and was threatening her as well as having multiple knives in his bedroom and BB guns. She felt it best to admit him because he could hurt himself or someone else. In the ER he denies suicidal and homicidal ideations but is acting very bizarrely Associated symptoms: Deny depression Review of Systems General: Reports: 10 or more systems reviewed and unremarkable except in HPI and below Const: Denies: fatigue Eyes: Denies: change in vision, blurry vision or eye redness ENMT: Denies: throat pain, swelling of lips/tongue, ear or mastoid pain or nasal congestion Card: Denies: chest pain, palpitations, irregular heart rhythm, edema, dyspnea on exertion or orthopnea Resp: Denies: dyspnea, productive cough or non-productive cough GI: Denies: abdominal pain, diarrhea or GI cramping : Denies: flank pain, urinary frequency or urinary urgency Musc: Denies: neck pain, back pain, extremity pain, joint pain, joint redness, limited range of motion or muscle weakness Skin/Breast: Denies: rash, pruritus, erythema, skin pain or skin tenderness Neuro: Denies: headache(s), numbness in extremities, weakness in extremities, sensory changes, difficulty walking, dizziness, confusion or Slurred speech present Psych: Denies: anxiety or depression Endo: Denies: polyuria All/Imm: Denies: urticaria, throat swelling or tongue swelling PFSH ED PFSH: Family History (Updated 06/07/19 @ 14:42 by Ariana Crum RN) Other CAD (coronary artery disease) Social History (Updated 06/07/19 @ 14:42 by Ariana Crum RN) Smoking and tobacco status: current every day smoker Alcohol intake: never Physical Exam Const: COMMON NORMALS: no acute distress, average body habitus, patient oriented x3, no limitations, healthy appearing, alert and well nourished GENERAL APPEARANCE: cooperative, comfortable, well kempt and well developed ORIENTATION/CONSCIOUSNESS: Yes awake, Yes oriented to person, Yes oriented to place and Yes oriented to time HENMT: COMMON NORMALS: normocephalic, external ears normal and Normal external nose present HEAD & SCALP: normal to inspection and normocephalic NOSE: Normal external nose present EXTERNAL EAR: Yes external ears normal MOUTH: Normal oral and palatal mucosa present THROAT: posterior oropharynx normal Eye: COMMON NORMALS: Equal, round and reactive pupils present and EOMs intact bilaterally GENERAL EYE: appearance normal, both eyes and all related structures PUPIL: Yes Equal, round and reactive pupils present Neck/C-Spine: COMMON NORMALS: full ROM, no lymphadenopathy, no meningeal signs and no JVD GENERAL: Yes normal visual inspection Lymph: LYMPHATIC: no lymphadenopathy noted Chest: COMMONS NORMALS: normal inspection of the chest and normal palpation of entire chest wall Resp: COMMON NORMALS: normal respiratory effort, No retractions, No use of accessory muscles, clear to auscultation bilaterally and percussion normal EFFORT & INSPECTION: Yes able to speak in complete sentences AUSCULTATION: clear to auscultation bilaterally PERCUSSION: percussion normal Cardio: COMMON NORMALS: no JVD, regular rate, regular rhythm, S1 normal heart sound present, S2 normal heart sound present and Peripheral pulses 2+ throughout RATE: regular rate RHYTHM: regular rhythm HEART SOUNDS: S1 normal heart sound present and S2 normal heart sound present PERIPHERAL PULSES: Peripheral pulses 2+ throughout GI: COMMON NORMALS: Normal to inspection, nondistended, normoactive bowel sounds present, Soft to palpation, non-tender and no masses INSPECTION: Yes normal to inspection PALPATION: Yes Soft to palpation : COMMON NORMALS: Yes no CVA tenderness BLADDER/KIDNEY EXAM: Yes no CVA tenderness Back/Pelvis: COMMON NORMALS: no CVA tenderness, thoracic and lumbar spine normal to inspection, no thoracic nor lumbar tenderness and thoraco-lumbar ROM normal Extremity: COMMON NORMALS: normal to inspection, full ROM, capillary refill normal, no joint enlargement and no pedal edema GENERAL: Yes normal exam except as noted Neuro: COMMON NORMALS: patient oriented x3, CN's II-XII intact bilaterally, moves all extremities, no focal motor deficits, no sensory deficits noted and gait normal SENSORIUM/ORIENTATION: Yes alert, Yes oriented to person, Yes oriented to place and Yes oriented to time MENINGEAL SIGNS: Yes no meningeal signs Psych: COMMON NORMALS: mental status grossly normal, Normal thought process present, cooperative, normal affect and speech normal APPEARANCE: Yes well kempt ATTITUDE: Yes calm SPEECH: Yes normal speech THOUGHT PROCESS: Normal thought process present Skin: COMMON NORMALS: no rashes or lesions noted GENERAL SKIN EXAM: no rashes or lesions noted MDM - Psych MDM Narrative: Medical decision making narrative: The patient is acting very bizarrely like a chronic schizophrenic and has 96-hour paperwork written and signed by a supervisor mixing. Discussed with Dr. Hart who accepts to Neuropsych Unit Lab Data: Labs: Lab Results 05/13/20 05/13/20 Range/Units 18:57 18:57 WBC 7.8 (4.0-10.0) 10^3/ uL RBC 4.72 (4.1-5.3) 10^6/u L Hgb 14.3 (11.7-16.6) g/dL Hct 43.1 (42.0-52.0) % MCV 91.3 (80-94) fL MCH 30.3 (28.0-34.0) pg MCHC 33.2 (30.0-36.0) g/dL RDW 14.6 (12.1-15.1) % Plt Count 198 (130-400) 10^3/c mm MPV 9.6 (7.4-10.4) fL Neut % (Auto) 62.9 % Lymph % (Auto) 28.6 % [place] % (Auto) 6.8 % Eos % (Auto) 0.1 % Baso % (Auto) 1.2 % Neut # (Auto) 4.92 (1.8-7.7) 10^3/u L Lymph # (Auto) 2.2 (0.8-4.8) 10^3/u L [place] # (Auto) 0.5 (0.2-0.9) 10^3/u L Eos # (Auto) 0.0 (0.0-0.8) 10^3/u L Baso # (Auto) 0.1 (0.0-0.1) 10^3/u L Nucleated RBC % (a uto) 0 % Nucleated RBCs # 0.0 /100WBC Sodium 145 (136-145) mmol/L Potassium 3.4 L (3.5-5.1) mmol/L Chloride 108 H (98-107) mmol/L Carbon Dioxide 22 (22-29) mmol/L Anion Gap 18.4 (5-19) BUN 21 (8-23) mg/dL Creatinine 1.1 (0.7-1.2) mg/dL GFR Calculation 68.1 L (90-130) mL/min Glucose 86 (65-115) mg/dL Calculated Osmolal ity 302 H (285-295) mOsm/k g Calcium 9.7 (8.5-10.5) mg/dL Total Bilirubin 0.5 (0.15-1.2) mg/dL AST 29 (0-40) U/L ALT 20 (0-41) U/L Alkaline Phosphata se 119 (40-130) IU/L Total Protein 7.6 (6.6-8.7) g/dL Albumin 4.0 (3.5-5.2) g/dL Globulin 3.6 (1.3-4.6) g/dL TSH 1.81 (0.27-4.20) uIU/ mL Salicylates < 0.3 L (3-10) mg/dL Acetaminophen < 5.0 L (10-30) ug/mL Ethyl Alcohol < 10 (0-10) mg/dL Discharge Plan Discharge Patient Disposition: Admitted As Inpatient Clinical Impression: Acute psychosis Condition: Stable Coding Level of Care Code ED Mobile Equipment Servicer for Dana Fwd Exam Comprehensive
[2020-05-13 21:58] VITALS: BP 178/103; PULSE 77; RESP 16; TEMP 36.5; O2SAT 97
[2020-05-13 22:00] VITALS: BP 178/103; PULSE 77; RESP 16; TEMP 36.5
[2020-05-13] MEDS: OLANZapine 5 mg ODT PO (22:58)
[2020-05-13] MEDS: trazodone 50 mg Tablet PO (22:58)
--- NOTE | 2020-05-13 23:02 | PC.NURSE ---
patient agitated Zyprexa given
[2020-05-13 23:04] VITALS: BP 178/103; PULSE 77; RESP 16; TEMP 36.5
[2020-05-14] VITALS (8 sets, daily range): BP systolic 136–178; BP diastolic 78–103; PULSE 70–99; RESP 16–19; TEMP 36.5–36.6; O2SAT 95–100
[2020-05-14] MEDS: metoclopramide 10 mg Tablet PO ×4 (06:54→22:34)
[2020-05-14] MEDS: cilostazol 100 mg Tablet PO ×2 (08:09→16:25)
[2020-05-14] MEDS: atorvastatin 40 mg Tablet PO (08:09)
[2020-05-14] MEDS: aspirin 81 mg EC Tablet PO (08:09)
[2020-05-14] MEDS: amlodipine 10 mg Tablet PO (08:09)
[2020-05-14] MEDS: clopidogrel 75 mg Tablet PO (08:09)
[2020-05-14 08:10] LABS: Glucose Urine UA Norm (Normal); Ketones Urine Negative (Negative); Protein Urine Neg (Negative); Urine Appearance Hazy (CLEAR); Urine Color Yellow (Yellow); pH Urine 8 (5-7)
[2020-05-14] MEDS: metoprolol succinate ER (24 HR) 100 mg Tablet PO (08:10)
[2020-05-14] MEDS: magnesium oxide 400 mg tablet PO ×2 (08:10→16:25)
[2020-05-14] MEDS: lisinopril 20 mg Tablet PO ×2 (08:10→16:25)
[2020-05-14] MEDS: fluticasone nasal spray 16gm Btl 2 SPRAY INTRANASAL (08:10)
[2020-05-14 08:11] LABS: Add Urine Microscopic? YES; Bilirubin Urine Neg (Negative); Blood Urine 2+ (Negative); Leukocyte Esterase Urine Trace (Negative); Nitrate Urine Negative (Negative); Sulfosalicylic Acid Urine Negative (Negative); Urobilinogen Urine Norm (Negative)
[2020-05-14] MEDS: pantoprazole DR 40 mg Tablet PO (08:11)
[2020-05-14] MEDS: tamsulosin 0.4 mg Capsule PO (08:11)
[2020-05-14 08:15] LABS: Add Urine Culture? Yes; Amorphous Sediment Urine 2+ /hpf; Bacteria Urine 2+ /hpf; Squamous Epithelial Cell Urine 0-4 /hpf (0-5)
[2020-05-14 08:26] LABS: Amphetamines Screen Urine Negative (Negative); Barbiturates Screen Urine Negative (Negative); Benzodiazepines Screen Urine Negative (Negative); Cocaine Screen Urine Negative (Negative); Opiate Screen Urine Negative (Negative); PCP Screen Urine Negative (Negative); THC Screen Urine Positive (Negative)
[2020-05-14] MEDS: nortriptyline 10 mg Capsule PO (09:06)
--- NOTE | 2020-05-14 09:31 | PC.NURSE ---
Patient was given medications as ordered by physician. Patient in room undressed with Stool on legs. He states he has diarrhea. Patient assisted to shower by this nurse. Patient is scattered in thought process and with behavior. Patient has intermittent auditory hallucinations and is speaking to the voices . Patient out of shower and is dressing. Will continue to closely monitor. INGRID, SOFIA
[2020-05-14] MEDS: loperamide 2 mg Capsule PO ×2 (11:15→21:02)
--- NOTE | 2020-05-14 13:19 | P.HP_ITS ---
Providers/Chief Complaint Admitting Physician: Hari Hart MD Chief Complaint: 96 HOUR HOLD HPI NPU History of Present Illness Real Casey is a 59 year old male who presented to the emergency department wi th the following report: Chief Complaint: Psychiatric Symptoms Stated Complaint: 96 HOUR HOLD Time Seen by Provider: 05/13/20 18:13 History of Present Illness: HPI Narrative: The patient is a 59-year-old male with chronic schizophrenia who comes to the ER with a 96-hour hold paperwork after he was found acting bizarrely by at home health care worker. He had piles of trash everywhere and was not making sense and was threatening her as well as having multiple knives in his bedroom and BB guns. She felt it best to admit him because he could hurt himself or someone else. In the ER he denies suicidal and homicidal ideations but is acting very bizarrely Associated symptoms: Deny depression. He was admitted to the neuropsychiatric unit for definitive treatment of those issues. He is known to this flex o writer operator through his previous hospitalization 01/03/2020. He presented in a very similar fashion and with just his limitations became much more functional. He presents today probably more disorganized than that time speaking in gibberish and nonsensical comments. He has been struggling with diarrhea since he arrived and is making comments that can be extrapolated to the point he is trying to make in relation to his gastrointestinal problem. Otherwise, he is of little use conversationally to get any historical information. An excerpt of his 01/03/2020 evaluation is included for some context. Per his 01/03/2020 [facility] [place] [facility] inpatient eval: History of Present Illness Real Casey is a 59 year old male who presented to the emergency room with yielding the following report: Patient is a 59-year-old male who presents to ED today via [facility] as well as [facility] for complaints of bizarre behavior and hostile actions. [facility] office stated when they arrived to patient's home, patient came him with a knife stating that it was his day to and that he was ordered to kill him by the president. Apparently patient lives with his cousin who is the individual that contacted the police. Upon arrival patient's history is very hard to obtain from patient himself as he constantly rambles about people living underneath his house. 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 He states he is not suicidal. He admits to meth use. Associated symptoms: Reports delusions Real was admitted to the neuropsychiatric unit for definitive treatment of those issues. He is a very poor story and was not able to add a lot of information due to both his poor communication skills his anxiety and some apparent thought disorder. There are different times in the interview where he got emotional and ultimately demanded that I leave the room prior to the completion of the interview. It was then, with asking historical questions about his family namely whether his parents were alive. He said no and began crying. The more upset he got the more angry got it me. And ultimately kicked me out of his room. He reports no previous psychiatric hospitalization. He was also very upset because he felt like his family had deserted him and that is why he is here. He did agree however that we could contact his family. Meds NPU Home Medications Medication Instructions Recorded Confirmed Last Taken Type albuterol sulfate 90 mcg/actuation 2 puff INHALATION Q6H PRN 06/07/19 05/14/20 Unknown History aerosol inhaler amlodipine 10 mg tablet 10 mg PO DAILY 06/07/19 05/14/20 Unknown History aspirin 81 mg tablet,delayed 81 mg PO DAILY 06/07/19 05/14/20 Unknown History release atorvastatin 40 mg tablet 40 mg PO DAILY 06/07/19 05/14/20 Unknown History clopidogrel 75 mg tablet 75 mg PO DAILY 06/07/19 05/14/20 Unknown History fluticasone furoate 200 1 inh INHALATION DAILY 06/07/19 05/14/20 Unknown History mcg-vilanterol 25 mcg/dose inhalation powder fluticasone propionate 50 2 spray INTRANASAL DAILY 06/07/19 05/14/20 Unknown History mcg/actuation nasal spray,suspension lisinopril 20 mg tablet 20 mg PO BID 06/07/19 05/14/20 Unknown History magnesium oxide 400 mg PO BID 06/07/19 05/14/20 Unknown History metoclopramide HCl 10 mg tablet 10 mg PO Q6H 06/07/19 05/14/20 Unknown History omeprazole 20 mg capsule,delayed 20 mg PO BID 06/07/19 05/14/20 Unknown History release tamsulosin 0.4 mg capsule 0.4 mg PO DAILY 06/07/19 05/14/20 Unknown History tiotropium bromide 2.5 2 puff INHALATION DAILY 06/07/19 05/14/20 Unknown History mcg/actuation mist for inhalation cilostazol 100 mg tablet 100 mg PO BID #60 tab 07/15/19 05/14/20 Unknown Rx metoprolol succinate 100 mg 100 mg PO DAILY #90 tab 07/15/19 05/14/20 Unknown Rx tablet,extended release 24 hr mirtazapine 30 mg PO DAILY 30 Days #30 tab 01/07/20 05/14/20 Unknown Rx nortriptyline 10 mg PO DAILY 30 Days #30 cap 01/07/20 05/14/20 Unknown Rx nitroglycerin 0.4 mg sublingual 0.4 mg SUBLINGUAL Q5M PRN #25 tab 03/16/20 05/14/20 Unknown Rx tablet esomeprazole magnesium 40 mg PO DAILY 05/13/20 05/14/20 Unknown History hydroxyzine HCl 1 tab PO TID PRN 05/13/20 05/14/20 Unknown History ipratropium-albuterol [Combivent 1 puff INHALATION Q6H 05/13/20 05/14/20 Unknown History Respimat] Allergies Allergy/AdvReac Type Severity Reaction Status Date / Time tramadol Allergy Unknown sick Verified 06/07/19 14:39 stomach PFSH NPU PFSH: Family History (Updated 06/07/19 @ 14:42 by Ariana Crum RN) Other CAD (coronary artery disease) Social History (Updated 06/07/19 @ 14:42 by Ariana Crum RN) Smoking and tobacco status: current every day smoker Alcohol intake: never Mental Status Exam MSE Comments: This is a underweight versus cachectic white male with signific ant skin blotching and bruising consistent with someone on blood thinners in hospital scrubs with limited grooming and eye contact. No abnormal movements except for psychomotor agitation. Somewhat cooperative with exam in mild distress. Speech was nonsensical and tangential. Mood described as I cannot sit on the toilet anymore, affect stressed and confused. Thought process disorganized. Thought content: Patient did not respond appropriately to questions in the section but did not display aggression towards himself or others, delusions reported or noted, he did not appear to be attending to internal stimuli. Attention and concentration were impaired and memory was unreliable but none were formally tested. He is alert and oriented to person and place. Insight and judgment are impaired, impulse control is limited. Vitals/I&O/Wt Last Vital Signs Temp 97.7 F 05/14/20 00:08 Pulse 74 05/14/20 09:54 Resp 18 05/14/20 09:54 BP 178/103 05/14/20 00:08 Pulse Ox 96 05/14/20 09:54 Weight last 48 hrs Weight 36.287 kg Data NPU : 05/13/20 18:57 05/13/20 18:57 A&P Assessment and plan (1) Acute psychosis: Status: Acute (2) Cannabis abuse: Status: Acute Additional A&P Information This is a 59-year-old white male with a history of thought disorder who presents much like he presented in December of last year with disorganization of thought and the circumstances of his life with his home reportedly being in complete disarray with significant diarrhea and unable to communicate any reasonable information. 1. Continue current medication. We will continue to offer an antipsychotic for thought disorder. 2. Continue every 15 minute checks for safety. 3. Encourage individual, group and milieu therapies. 4. Encourage sober living treatment after discharge at the highest level of care to which he is willing to commit. Involuntary Hold Information 96 Hour Hold: 96 Hour Involuntary Admission: Yes 96 Hour Hold Ending Date: 05/19/20 96 Hour Hold Ending Time: 21:17 Attestations NPU Medical Necessity Statement*: Inpatient hospitalization is medically necessary and the clinically appropriate intervention at this time. We will monitor medications and make changes as indicated. Patient will be in the hospital for over two midnights. Likely length of stay 3 to 5 days. Coding Level of Care Code Acute Workers' Compensation Hearings Officer for Dana Donnelly Diagnoses Acute psychosis F23 Cannabis abuse F12.10
--- NOTE | 2020-05-14 15:21 | PC.NURSE ---
Stool: Patient continues to have multiple loose incontinent stools. Briefs given to patient and encouraged patient to take another shower and he refused. We have placed a specimen collection device in patients commode and patient instructed to have bowel movement in specimen collection devise. Patient is pacing in his room but appears stable. Patients communication is rambling with word salad. His unable to complete his thoughts and sentences. He remains calm but confused. Will continue to closely monitor. INGRID, SOFIA
--- NOTE | 2020-05-14 15:41 | PC.NURSE ---
Patients Linen changed. SMW, COMPOUND MACHINE OPERATOR
[2020-05-14] MEDS: OLANZapine 5 mg ODT PO (16:25)
[2020-05-14] MEDS: acetaminophen 325 mg Tablet 650 MG PO (16:25)
[2020-05-14] MEDS: hyDROXYzine 25 mg Capsule 50 MG PO (20:50)
[2020-05-14] MEDS: trazodone 50 mg Tablet PO (20:50)
[2020-05-14] MEDS: haloperidol 5 mg Tablet PO (22:34)
[2020-05-15] VITALS (7 sets, daily range): BP systolic 97–132; BP diastolic 58–78; PULSE 88–106; RESP 16–18; TEMP 36.9–37.3; O2SAT 97–99
[2020-05-15] MEDS: metoclopramide 10 mg Tablet PO ×3 (06:02→17:15)
[2020-05-15] MEDS: atorvastatin 40 mg Tablet PO (09:06)
[2020-05-15] MEDS: amlodipine 10 mg Tablet PO (09:06)
[2020-05-15] MEDS: aspirin 81 mg EC Tablet PO (09:06)
[2020-05-15] MEDS: cilostazol 100 mg Tablet PO ×2 (09:06→17:34)
[2020-05-15] MEDS: clopidogrel 75 mg Tablet PO (09:07)
[2020-05-15] MEDS: fluticasone nasal spray 16gm Btl 2 SPRAY INTRANASAL (09:07)
[2020-05-15] MEDS: lisinopril 20 mg Tablet PO ×2 (09:08→17:34)
[2020-05-15] MEDS: metoprolol succinate ER (24 HR) 100 mg Tablet PO (09:08)
[2020-05-15] MEDS: magnesium oxide 400 mg tablet PO ×2 (09:08→17:34)
[2020-05-15] MEDS: nortriptyline 10 mg Capsule PO (09:08)
[2020-05-15] MEDS: pantoprazole DR 40 mg Tablet PO (09:08)
[2020-05-15] MEDS: tamsulosin 0.4 mg Capsule PO (09:08)
[2020-05-15] MEDS: loperamide 2 mg Capsule PO (17:12)
--- NOTE | 2020-05-15 18:22 | PM.CONSULT ---
Providers/Reason For Consult Consulting Physican/Specialty*: Psychiatry Reason for Consult*: Diarrhea Attending Physician: Hari Hart MD History of Present Illness History of Present Illness Real Casey is a 59 year old male with past medical history of Hypertension, dyslipidemia, gastroesophageal reflux disease and multiple psychiatric issues who was admitted to npu with acute psychosis. Patient was noted to have multiple episodes of loose watery diarrhea. At times this was tinged with bright red blood. Patient was noted to have significant hemorrhoids. Patient was not able to provide much history. While on unit patient did not have any episodes of fever, chills, nausea vomiting. Per staff patient had not reportedly been on any recent antibiotics. Tolerating oral intake. Review of Systems General: Reports: ROS unobtainable due to medical condition Meds/Allergies Home Medications and Allergies Home Medications Medication Instructions Recorded Confirmed Last Taken Type albuterol sulfate 90 mcg/actuation 2 puff INHALATION Q6H PRN 06/07/19 05/14/20 Unknown History aerosol inhaler amlodipine 10 mg tablet 10 mg PO DAILY 06/07/19 05/14/20 Unknown History aspirin 81 mg tablet,delayed 81 mg PO DAILY 06/07/19 05/14/20 Unknown History release atorvastatin 40 mg tablet 40 mg PO DAILY 06/07/19 05/14/20 Unknown History clopidogrel 75 mg tablet 75 mg PO DAILY 06/07/19 05/14/20 Unknown History fluticasone furoate 200 1 inh INHALATION DAILY 06/07/19 05/14/20 Unknown History mcg-vilanterol 25 mcg/dose inhalation powder fluticasone propionate 50 2 spray INTRANASAL DAILY 06/07/19 05/14/20 Unknown History mcg/actuation nasal spray,suspension lisinopril 20 mg tablet 20 mg PO BID 06/07/19 05/14/20 Unknown History magnesium oxide 400 mg PO BID 06/07/19 05/14/20 Unknown History metoclopramide HCl 10 mg tablet 10 mg PO Q6H 06/07/19 05/14/20 Unknown History omeprazole 20 mg capsule,delayed 20 mg PO BID 06/07/19 05/14/20 Unknown History release tamsulosin 0.4 mg capsule 0.4 mg PO DAILY 06/07/19 05/14/20 Unknown History tiotropium bromide 2.5 2 puff INHALATION DAILY 06/07/19 05/14/20 Unknown History mcg/actuation mist for inhalation cilostazol 100 mg tablet 100 mg PO BID #60 tab 07/15/19 05/14/20 Unknown Rx metoprolol succinate 100 mg 100 mg PO DAILY #90 tab 07/15/19 05/14/20 Unknown Rx tablet,extended release 24 hr mirtazapine 30 mg PO DAILY 30 Days #30 tab 01/07/20 05/14/20 Unknown Rx nortriptyline 10 mg PO DAILY 30 Days #30 cap 01/07/20 05/14/20 Unknown Rx nitroglycerin 0.4 mg sublingual 0.4 mg SUBLINGUAL Q5M PRN #25 tab 03/16/20 05/14/20 Unknown Rx tablet esomeprazole magnesium 40 mg PO DAILY 05/13/20 05/14/20 Unknown History hydroxyzine HCl 1 tab PO TID PRN 05/13/20 05/14/20 Unknown History ipratropium-albuterol [Combivent 1 puff INHALATION Q6H 05/13/20 05/14/20 Unknown History Respimat] Allergies Allergy/AdvReac Type Severity Reaction Status Date / Time tramadol Allergy Unknown sick Verified 06/07/19 14:39 stomach Current Medications Current Medications Generic Name Dose Route Start Last Admin Trade Name Freq PRN Reason Stop Dose Admin Acetaminophen 650 mg 05/13/20 21:58 05/14/20 16:25 Acetaminophen 325 Mg Tablet PO 650 mg Q4H PRN Administration MILD PAIN Albuterol/Ipratropium 1 puff 05/14/20 03:00 05/15/20 15:06 Ipratropium-Albuterol 4 Gm Mdi INHALATION 1 puff Q6H.RESPIRATORY PITER Administration Amlodipine Besylate 10 mg 05/14/20 09:00 05/15/20 09:06 Amlodipine 10 Mg Tablet PO 10 mg DAILY PITER Administration Aspirin 81 mg 05/14/20 09:00 05/15/20 09:06 Aspirin 81 Mg Ec Tablet PO 81 mg DAILY PITER Administration Atorvastatin Calcium 40 mg 05/14/20 09:00 05/15/20 09:06 Atorvastatin 40 Mg Tablet PO 40 mg DAILY PITER Administration Cilostazol 100 mg 05/14/20 09:00 05/15/20 17:34 Cilostazol 100 Mg Tablet PO 100 mg BID PITER Administration Clopidogrel Bisulfate 75 mg 05/14/20 09:00 05/15/20 09:07 Clopidogrel 75 Mg Tablet PO 75 mg DAILY PITER Administration Fluticasone Propionate 2 spray 05/14/20 09:00 05/15/20 09:07 Fluticasone Nasal [place] 16gm Btl INTRANASAL 2 spray DAILY PITER Administration Haloperidol 5 mg 05/13/20 21:58 05/14/20 22:34 Haloperidol 5 Mg Tablet PO 5 mg Q4H PRN Administration AGITATION Hydroxyzine Pamoate 50 mg 05/13/20 21:58 05/14/20 20:50 Hydroxyzine 25 Mg Capsule PO 50 mg Q6H PRN Administration ANXIETY Lisinopril 20 mg 05/14/20 09:00 05/15/20 17:34 Lisinopril 20 Mg Tablet PO 20 mg BID PITER Administration Loperamide HCl 2 mg 05/13/20 21:58 05/15/20 17:12 Loperamide 2 Mg Capsule PO 2 mg Q6H PRN Administration DIARRHEA Magnesium Oxide 400 mg 05/14/20 09:00 05/15/20 17:34 Magnesium Oxide 400 Mg Tablet PO 400 mg BID PITER Administration Metoclopramide HCl 10 mg 05/14/20 00:15 05/15/20 17:15 Metoclopramide 10 Mg Tablet PO 10 mg Q6H PITER Administration Metoprolol Succinate 100 mg 05/14/20 09:00 05/15/20 09:08 Metoprolol Succinate Er (24 Hr) 100 Mg Tablet PO 100 mg DAILY PITER Administration Nortriptyline HCl 10 mg 05/14/20 09:00 05/15/20 09:08 Nortriptyline 10 Mg Capsule PO 10 mg DAILY PITER Administration Olanzapine 5 mg 05/13/20 21:58 05/14/20 16:25 Olanzapine 5 Mg Odt PO 5 mg Q4H PRN Administration Agitation/Psychosis Pantoprazole Sodium 40 mg 05/14/20 09:00 05/15/20 09:[address] 40 Mg Tablet PO 40 mg DAILY PITER Administration Tamsulosin HCl 0.4 mg 05/14/20 09:00 05/15/20 09:08 Tamsulosin 0.4 Mg Capsule PO 0.4 mg DAILY PITER Administration Tiotropium [place] 18 mcg 05/14/20 08:00 05/15/20 09:24 Tiotropium 18 Mcg Mdi INHALATION 1 puff DAILY.RESPIRATORY PITER Administration PFSH Acute PFSH: Family History Other CAD (coronary artery disease) Social History Smoking and tobacco status: current every day smoker Alcohol intake: never Vitals/I&O/Wt Last Vital Signs Temp 99.1 F 05/15/20 14:00 Pulse 100 05/15/20 15:06 Resp 18 05/15/20 15:06 BP 109/65 05/15/20 14:00 Pulse Ox 98 05/15/20 15:06 Weight last 48 hrs Weight 36.287 kg Physical Exam Narrative: EXAM NARRATIVE: General- unkempt, chronically ill-appearing HEENT- grossly unremarkable CVS- regular rate rhythm chest- nonlabored respiration abdomen-soft nontender nondistended extremities-no edema Data Micro: Micro: Microbiology 05/14/20 06:55 Urine Culture - Pr eliminary Urine,Clean Catch Gram Negative R ods Gram Negative R ods#2 05/14/20 19:25 C.difficile Toxin B Gene (PCR) - Fin al Stool Routine Col lection A&P Assessment and plan (1) Acute gastroenteritis: Toerating po intake Stool send for c-diff Likely viral Repleat labs in am If c-diff negative - ok to use immodium CBC in am Anusol for hemorrhoids. Status: Acute (2) Hypokalemia: Replace as needed Status: Acute (3) Acute psychosis: per psych Status: Acute Consult Attestations Medical Necessity Statement: will need continued hospitalization for management of acute psychosis Time Spent in Patient Care: Greater than 35 minutes Coding Level of Care Code Acute Pollution Control Engineer for Dana Fwd Diagnoses Acute gastroenteritis K52.9 Hypokalemia E87.6 Acute psychosis F23
--- NOTE | 2020-05-15 19:30 | P.PN_ITS ---
Subjective NPU Subjective: Interval history: Real presents today seeming much clearer than he was yesterday and able to have a normal [id number] conversation with reasonable responses and some spontaneity. We discussed the fact that this is very reminiscent of his last hospitalization where he seemed fairly confused initially but then stabilized quickly. We discussed any problems with direction on the results of testing given his diarrhea and reported blood in his urine. Otherwise he denied any significant issues. Mental Status Exam MSE Comments: This is a underweight versus cachectic white male with significant skin blotching and bruising consistent with someone on blood thinners in hospital scrubs with improved grooming and eye contact. No abnormal movements except for mild tremulousness. Cooperative with exam in no acute distress. Speech was more normal rate and volume. Mood described as better, affect congruent. Thought process more organized. Thought content: Patient de nied suicidal or homicidal ideation, there were no delusions reported or noted, he denied any auditory or visual hallucinations. Attention and concentration were improving and memory was more reliable but none were formally tested. He is alert and oriented x3. Insight and judgment are improving, impulse control is improving. Vitals/I&O/Wt Last Vital Signs Temp 99.1 F 05/15/20 14:00 Pulse 100 05/15/20 15:06 Resp 18 05/15/20 15:06 BP 109/65 05/15/20 14:00 Pulse Ox 98 05/15/20 15:06 Weight last 48 hrs Weight 36.287 kg Data NPU : 05/13/20 18:57 05/13/20 18:57 Micro: Microbiology 05/14/20 06:55 Urine Culture - Preliminary Urine,Clean Catch Gram Negative Rods Gram Negative Rods#2 05/14/20 19:25 C.difficile Toxin B Gene (PCR) - Final Stool Routine Collection Microbiology 05/14/20 06:55 Urine,Clean Catch Urine Culture - Preliminary Gram Negative Rods Gram Negative Rods#2 05/14/20 19:25 Stool Routine Collection C.difficile Toxin B Gene (PCR) - Final A&P Additional A&P Information (1) Acute psychosis: (2) Cannabis abuse: Additional A&P Information This is a 59-year-old white male with a history of thought disorder who presents much like he presented in December of last year with disorganization of thought and the circumstances of his life with his home reportedly being in complete disarray with significant diarrhea and unable to communicate any reasonable i nformation. 1. Continue current medication. We will hold on starting a new medication given his significant polypharmacy which may ultimately contribute to these episodes. 2. Continue every 15 minute checks for safety. 3. Encourage individual, group and milieu therapies. 4. Encourage sober living treatment after discharge at the highest level of care to which he is willing to commit. 5. We will await hospitalist recommendation given laboratory results. Involuntary Hold Information 96 Hour Hold: 96 Hour Involuntary Admission: Yes 96 Hour Hold Ending Date: 05/19/20 96 Hour Hold Ending Time: 21:17 Attestations NPU Medical Necessity Statement*: Inpatient hospitalization is medically necessary and the clinically appropriate intervention at this time. We will monitor medications and make changes as indicated. Likely length of stay 1-4 days. Coding Level of Care Code Acute Train Inspector for Dana Donnelly
[2020-05-16] MEDS: metoclopramide 10 mg Tablet PO ×3 (03:04→13:17)
[2020-05-16 03:08] VITALS: BP 125/76; PULSE 110; RESP 18; TEMP 37.1; O2SAT 97
[2020-05-16 04:00] LABS: Basophils # 0.1 10^3/uL (0.0-0.1); Basophils % 0.6 %; Eosinophils % 0.3 %; Hematocrit 36.1 % (42.0-52.0); Hemoglobin 11.6 g/dL (11.7-16.6); Lymphocytes % 20.8 %; Mean Corpuscular HGB Conc 32.1 g/dL (30.0-36.0); Mean Corpuscular Hemoglobin 30.2 pg (28.0-34.0); Mean Platelet Volume 10.4 fL (7.4-10.4); Monocytes # 0.6 10^3/uL (0.2-0.9); Monocytes % 5.8 %; Neutrophils # 6.83 10^3/uL (1.8-7.7); Nucleated Red Blood Cells % 0 %; Platelet Count 163 10^3/cmm (130-400); Red Blood Count 3.84 10^6/uL (4.1-5.3); Red Cell Distribution Width 14.5 % (12.1-15.1); White Blood Count 9.5 10^3/uL (4.0-10.0)
[2020-05-16 04:27] LABS: Alanine Aminotransferase 14 U/L (0-41); Albumin Level 2.7 g/dL (3.5-5.2); Alkaline Phosphatase 89 IU/L (40-130); Anion Gap 14.1 (5-19); Aspartate Amino Transferase 13 U/L (0-40); Blood Urea Nitrogen 19 mg/dL (8-23); Calcium 8.1 mg/dL (8.5-10.5); Carbon Dioxide 19 mmol/L (22-29); Chloride 107 mmol/L (98-107); Globulin 2.8 g/dL (1.3-4.6); Glucose 148 mg/dL (65-115); Osmolality Calculated 289 mOsm/kg (285-295); Potassium 3.1 mmol/L (3.5-5.1); Sodium 137 mmol/L (136-145); Total Bilirubin 0.3 mg/dL (0.15-1.2); Total Protein 5.5 g/dL (6.6-8.7)
[2020-05-16] MEDS: pantoprazole DR 40 mg Tablet PO (07:56)
[2020-05-16] MEDS: fluticasone nasal spray 16gm Btl 2 SPRAY INTRANASAL (07:56)
[2020-05-16] MEDS: metoprolol succinate ER (24 HR) 100 mg Tablet PO (07:56)
[2020-05-16] MEDS: clopidogrel 75 mg Tablet PO (07:57)
[2020-05-16] MEDS: aspirin 81 mg EC Tablet PO (07:57)
[2020-05-16] MEDS: nortriptyline 10 mg Capsule PO (07:57)
[2020-05-16] MEDS: atorvastatin 40 mg Tablet PO (07:57)
[2020-05-16] MEDS: lisinopril 20 mg Tablet PO (07:57)
[2020-05-16] MEDS: magnesium oxide 400 mg tablet PO (07:57)
[2020-05-16] MEDS: amlodipine 10 mg Tablet PO (07:58)
[2020-05-16] MEDS: tamsulosin 0.4 mg Capsule PO (07:58)
[2020-05-16] MEDS: cilostazol 100 mg Tablet PO (07:58)
[2020-05-16 08:55] VITALS: PULSE 94; RESP 18; O2SAT 99
[2020-05-16] MEDS: loperamide 2 mg Capsule PO (13:18)
--- NOTE | 2020-05-16 13:58 | PM.NDC ---
Diagnoses at Discharge Discharge Diagnosis (1) Acute gastroenteritis: Status: Acute (2) Hypokalemia: Status: Acute (3) Acute psychosis: Status: Acute Reason for Visit Reason for Visit: 96 HOUR HOLD Brief History: History of Present Illness Real Casey is a 59 year old male who presented to the emergency department with the following report: Chief Complaint: Psychiatric Symptoms Stated Complaint: 96 HOUR HOLD Time Seen by Provider: 05/13/20 18:13 History of Present Illness: HPI Narrative: The patient is a 59-year-old male with chronic schizophrenia who comes to the ER with a 96-hour hold paperwork after he was found acting bizarrely by at home health care worker. He had piles of trash everywhere and was not making sense and was threatening her as well as having multiple knives in his bedroom and BB guns. She felt it best to admit him because he could hurt himself or someone else. In the ER he denies suicidal and homicidal ideations but is acting very bizarrely Associated symptoms: Deny depression. He was admitted to the neuropsychiatric unit for definitive treatment of those issues. He is known to this process description writer through his previous hospitalization 01/03/2020. He presented in a very similar fashion and with just his limitations became much more functional. He presents today probably more disorganized than that time speaking in gibberish and nonsensical comments. He has been struggling with diarrhea since he arrived and is making comments that can be extrapolated to the point he is trying to make in relation to his gastrointestinal problem. Otherwise, he is of little use conversationally to get any historical information. An excerpt of his 01/03/2020 evaluation is included for some context. Per his 01/03/2020 [facility] inpatient eval: History of Present Illness Real Casey is a 59 year old male who presented to the emergency room with yielding the following report: Patient is a 59-year-old male who presents to ED today via [facility] as well as [facility] for complaints of bizarre behavior and hostile actions. [facility] office stated when they arrived to patient's home, patient came him with a knife stating that it was his day to and that he was ordered to kill him by the president. Apparently patient lives with his cousin who is the individual that contacted the police. Upon arrival patient's history is very hard to obtain from patient himself as he constantly rambles about people living underneath his house. 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 He states he is not suicidal. He admits to meth use. Associated symptoms: Reports delusions Real was admitted to the neuropsychiatric unit for definitive treatment of those issues. He is a very poor story and was not able to add a lot of information due to both his poor communication skills his anxiety and some apparent thought disorder. There are different times in the interview where he got emotional and ultimately demanded that I leave the room prior to the completion of the interview. It was then, with asking historical questions about his family namely whether his parents were alive. He said no and began crying. The more upset he got the more angry got it me. And ultimately kicked me out of his room. He reports no previous psychiatric hospitalization. He was also very upset because he felt like his family had deserted him and that is why he is here. He did agree however that we could contact his family. Hospital Course Hospital Course Real presented to the emergency department on a 96-hour hold secondary to concerns related to his house being found in disarray with multiple BB guns and knives found in his bedroom and concerns for safety and reported bizarre behavior with disorganized speech. He was admitted to the neuropsychiatric unit for definitive treatment of those issues. Much like previous hospitalizations he quickly acclimated to the individual, group and milieu therapies provided in the next day all the confusion and disorganization appeared gone. He was noted that he was at home from but also appeared to have a UTI with gram-negative rods that turned out to be E. coli. He was discharged with 4 more days of Levaquin. He did endorse that he had not been taking his nortriptyline which we had restarted. He endorsed plan to take the medication as prescribed and was able to contract for safety prior to discharge. During the hospitalization, patient had routine laboratory studies which were within normal limits except for few outliers. Additionally there was a general medical evaluation which was also within normal limits and revealed no new acute processes must those identified and treated by the hospitalist. Discharge Summary: At the time of discharge, he was absent psychosis lethality. Mood and anxiety were well managed. Patient endorsed a plan to avoid all drugs of abuse and follow-up with the aftercare recommendations of the treatment team. Patient was evaluated and deemed to be absent credible lethality, and had achieved the maximum benefit from an inpatient hospitalization, so was discharged. Involuntary Hold Information 96 Hour Hold: 96 Hour Involuntary Admission: Yes 96 Hour Hold Ending Date: 05/19/20 96 Hour Hold Ending Time: 21:17 Mental Status Exam MSE Comments: This is a underweight versus cachectic white male with significant skin blotching and bruising consistent with someone on blood thinners in hospital scrubs with improved grooming and eye contact. No abnormal movements except for mild tremulousness. Cooperative with exam in no acute distress. Speech was more normal rate and volume. Mood described as pretty good, affect congruent. Thought process more organized. Thought content: Patient denied suicidal or homicidal ideation, there were no delusions reported or noted, he denied any auditory or visual hallucinations. Attention and concentration were improving and memory was more reliable but none were formally tested. He is alert and oriented x3. Insight and judgment are improving, impulse control is improving. Discharge Data Data Completed and Pending: Labs from last 24 hours 05/16/20 05/16/20 03:50 03:50 WBC 9.5 RBC 3.84 L Hgb 11.6 L Hct 36.1 L MCV 94.0 MCH 30.2 MCHC 32.1 RDW 14.5 Plt Count 163 MPV 10.4 Neut % (Auto) 72.0 Lymph % (Auto) 20.8 [place] % (Auto) 5.8 Eos % (Auto) 0.3 Baso % (Auto) 0.6 Neut # (Auto) 6.83 Lymph # (Auto) 2.0 [place] # (Auto) 0.6 Eos # (Auto) 0.0 Baso # (Auto) 0.1 Nucleated RBC % (a uto) 0 Nucleated RBCs # 0.0 Sodium 137 Potassium 3.1 L Chloride 107 Carbon Dioxide 19 L Anion Gap 14.1 BUN 19 Creatinine 1.0 GFR Calculation 76.0 L Glucose 148 H Calculated Osmolal ity 289 Calcium 8.1 L Total Bilirubin 0.3 AST 13 ALT 14 Alkaline Phosphata se 89 Total Protein 5.5 L Albumin 2.7 L Globulin 2.8 Vitals: Last Vital Signs Temp 98.8 F 05/16/20 03:08 Pulse 94 05/16/20 08:55 Resp 18 05/16/20 08:55 BP 125/76 05/16/20 03:08 Pulse Ox 99 05/16/20 08:55 Discharge Plan Discharge Patient Disposition: Home Condition: Stable Prescriptions: New levofloxacin 500 mg Tablet 500 mg PO DAILY@0600 4 Days Qty: 4 RF: 0 Continued amlodipine 10 mg tablet 10 mg PO DAILY RF: 0 magnesium oxide 400 mg magnesium tablet 400 mg PO BID RF: 0 omeprazole 20 mg capsule,delayed release(DR/EC) 20 mg PO BID RF: 0 Spiriva Respimat 2.5 mcg/actuation mist 2 puff INHALATION DAILY RF: 0 Breo Ellipta 200-25 mcg/dose blister with device 1 inh INHALATION DAILY RF: 0 lisinopril 20 mg tablet 20 mg PO BID RF: 0 albuterol sulfate [ProAir HFA] 90 mcg/actuation HFA aerosol inhaler 2 puff INHALATION Q6H PRN (Reason: Adequate Ventilation) RF: 0 clopidogrel 75 mg tablet 75 mg PO DAILY RF: 0 atorvastatin 40 mg tablet 40 mg PO DAILY RF: 0 fluticasone propionate [Flonase Allergy Relief] 50 mcg/actuation spray,suspension 2 spray INTRANASAL DAILY RF: 0 tamsulosin [Flomax] 0.4 mg capsule 0.4 mg PO DAILY RF: 0 metoclopramide HCl [Reglan] 10 mg tablet 10 mg PO Q6H RF: 0 aspirin [Adult Aspirin Regimen] 81 mg tablet,delayed release (DR/EC) 81 mg PO DAILY RF: 0 metoprolol succinate 100 mg tablet extended release 24 hr 100 mg PO DAILY Qty: 90 RF: 3 cilostazol 100 mg tablet 100 mg PO BID Qty: 60 RF: 6 nitroglycerin [Nitrostat] 0.4 mg tablet, sublingual 0.4 mg SUBLINGUAL Q5M PRN (Reason: Chest Pain) Qty: 25 RF: 1 esomeprazole magnesium 40 mg Capsule,Delayed Release(Dr/Ec) 40 mg PO DAILY RF: 0 Combivent Respimat 20-100 mcg/actuation mist 1 puff inhalation Q6H RF: 0 nortriptyline 10 mg capsule 10 mg PO DAILY 30 Days Qty: 30 RF: 1 mirtazapine 30 mg tablet 30 mg PO DAILY 30 Days Qty: 30 RF: 1 hydroxyzine HCl 1 tab PO TID PRN (Reason: unknown) 30 Days Qty: 90 RF: 1 Discharge Orders: Discharge Order (Routine); Ordered 05/16/20 Ordered By: Hari Hart Referrals: [facility] [Other] - 06/03/20 10:00 am (Your appointment is 06/03/2020 at 10:00 AM. You will be seeing Emi Bautista LCSW. The clinic is just past the [address], [address]. ) Discharge Diet: Cardiac Discharge Activity: Resume usual activity Patient Instructions: Hypokalemia (DC), Bipolar Disorder (DC), Gastroenteritis (DC) Discharge Attestations NPU Time Spent in Discharge Care*: less than 30 min Specific Discharge Activities: Specific discharge activities: educating patient, discussing with returned case inspector/social workers/dc planners, documenting/other paperwork and evaluating patient/reviewing data Coding Level of Care Code Acute Education Managers for Dana Fwd Diagnoses Acute gastroenteritis K52.9 Hypokalemia E87.6 Acute psychosis F23
[2020-05-16 14:45] VITALS: PULSE 94; RESP 18; O2SAT 99
--- NOTE | 2020-05-16 16:01 | PC.RESP ---
Smoking Cessation information sent to patient.
== END 2020-05-16 17:08 | disposition home or self-care (01) | DRG 885 ==
LOC: ER 21:15 → NP 21:22
PROVIDERS: Hospitalist; Admitting Provider Psychiatry & Neurology Psychiatry; Emergency Provider Family Medicine; Visit Provider Psychiatry & Neurology Psychiatry
DX: F23 Brief psychotic disorder (principal); R45.851 Suicidal ideations; E87.6 Hypokalemia; K52.9 Noninfective gastroenteritis and colitis, unspecified; F32.9 Major depressive disorder, single episode, unspecified; Z79.02 Long term (current) use of antithrombotics/antiplatelets; Z79.82 Long term (current) use of aspirin; F17.210 Nicotine dependence, cigarettes, uncomplicated
CPT/HCPCS: 12345; 36415; 80053; 80306; 80307; 81001; 84443; 85025; 87077; 87086; 87186; 87493; 93005; 94640; 99284; J3535; J8597